=== PATIENT | male | born 1940 | race Caucasian/White ===

== ENCOUNTER → 2017-08-31 | Outpatient (CLI) | payer MEDICARE ==
[~2017-08-31] MED LIST: ACET-66 PO; ATOR10TA69 PO; BACL10TA PO; GABA-529 PO; NABU500T3 PO; SACU1TAB7 PO; VIT1CAPS47 PO
== END | disposition home or self-care (01) ==
LOC: SHCH 14:19
PROVIDERS: ATTEND Internal Medicine Cardiovascular Disease
DX: I08.2 Rheumatic disorders of both aortic and tricuspid valves (principal)
CPT/HCPCS: 93306

== ENCOUNTER 2017-09-05 08:46 | Observation (INO) | payer MEDICARE ==
[2017-09-04 09:30] VITALS: BP 155/68
[2017-09-04 09:41] LABS: APPEARANCE,URINE CLEAR (CLEAR); BASOPHILS % (AUTO) 0.9 % (0.0-5.0); BILIRUBIN,URINE NEGATIVE (NEGATIVE); COLOR,URINE YELLOW (YELLOW); GLUCOSE, URINE (UA) NEGATIVE (NEGATIVE); HEMATOCRIT 50.4 % (42-54); KETONES,URINE NEGATIVE (NEGATIVE); LEUKOCYTE ESTERASE ,URINE NEGATIVE (NEGATIVE); LYMPHOCYTES % (AUTO) 18.3 % (21.0-51.0); MEAN CORPUSCULAR HEMOGLOBIN 28.6 pg (27.0-33.0); MEAN CORPUSCULAR HGB CONC 33.2 g/dL (32.0-36.0); MEAN CORPUSCULAR VOLUME 86.1 fL (79-99); MONOCYTES % (AUTO) 7.4 % (3.0-13.0); NEUTROPHILS % (AUTO) 72.4 % (40.0-77.0); NITRATE,URINE NEGATIVE (NEGATIVE); OCCULT BLOOD,URINE NEGATIVE (NEGATIVE); PLATELET COUNT (AUTO) 194 K/uL (130-400); PROTEIN,URINE NEGATIVE (NEGATIVE); RED BLOOD CELL COUNT(AUTO) 5.86 MIL/uL (4.50-6.20); RED CELL DISTRIBUTION WIDTH 14.4 % (11.0-15.5); UROBILINOGEN,URINE 0.2 mg/dL (0.2-1.0); WHITE BLOOD COUNT (AUTO) 7.9 K/uL (4.8-10.8)
[2017-09-04 09:53] LABS: CREATININE 0.9 mg/dL (0.5-1.5); INR 1.08 (0.85-1.15); PARTIAL THROMBOPLASTIN TIME 26.5 SEC (26.3-35.5); POTASSIUM 4.7 mmol/L (3.5-5.1); PROTHROMBIN TIME 11.3 SEC (9.6-11.6)
[2017-09-05] VITALS (19 sets, daily range): BP systolic 130–197; BP diastolic 40–95
[~2017-09-05] VITALS: Ht 175.3 cm; Wt 87.7 kg
[~2017-09-05 08:46] MED LIST changes: -SACU1TAB7 PO; +SODIUM CHLORIDE 0.9% 500ML 500 ML IV SCH
[2017-09-05] MEDS ORDERED: SODIUM CHLORIDE 0.9% 1000ML 1,000 ML IV ONE (09:02)
[2017-09-05] MEDS ORDERED: ISOVUE-370 50ML VIAL IV ONE (11:08)
[2017-09-05] MEDS ORDERED: IOPAMIDOL-370 100 ML VIAL IV ONE (11:08)
[2017-09-05] MEDS ORDERED: HEPARIN SODIUM 1000UNIT/ML 10ML VIAL ONE (11:08)
[2017-09-05] MEDS ORDERED: NITROGLYCERIN 5 MG/ML 10 ML VIAL IV ONE (11:08)
[2017-09-05] MEDS ORDERED: BIVALIRUDIN 250 MG/VIAL IV ONE (11:08)
[2017-09-05] MEDS ORDERED: LIDOCAINE HCL 1% 20 ML VIAL ONE (11:08)
[2017-09-05] MEDS ORDERED: MIDAZOLAM HCL 1 MG/ML 2ML VIAL ONE (11:46)
[2017-09-05] MEDS ORDERED: MORPHINE SULFATE 4 MG/1ML SYG ONE (11:46)
[2017-09-05] MEDS ORDERED: SODIUM CHLORIDE 0.9% 1000ML 1,000 ML IV SCH (12:15)
[2017-09-05] MEDS: FUROSEMIDE 10 MG/ML 4ML VIAL IVP SCH ×2 (13:06→20:11)
[2017-09-05 15:50] LABS: BASOPHILS % (AUTO) 0.7 % (0.0-5.0); EOSINOPHILS % (AUTO) 1.5 % (0.0-8.0); HEMATOCRIT 48.9 % (42-54); MEAN CORPUSCULAR HEMOGLOBIN 28.9 pg (27.0-33.0); MEAN CORPUSCULAR HGB CONC 33.5 g/dL (32.0-36.0); MEAN CORPUSCULAR VOLUME 86.2 fL (79-99); MONOCYTES % (AUTO) 9.9 % (3.0-13.0); NEUTROPHILS % (AUTO) 50.9 % (40.0-77.0); NUCLEATED RED BLOOD CELLS 0.1 % (0.0-0.19); PLATELET COUNT (AUTO) 230 K/uL (130-400); RED BLOOD CELL COUNT(AUTO) 5.67 MIL/uL (4.50-6.20); RED CELL DISTRIBUTION WIDTH 14.2 % (11.0-15.5); WHITE BLOOD COUNT (AUTO) 11.3 K/uL (4.8-10.8)
[2017-09-05] MEDS ORDERED: ONDANSETRON HCL MDV 20ML 2 MG/ML VIAL ONE (15:52)
[2017-09-05 15:59] LABS: CARBON DIOXIDE 32 mmol/L (21-32); CHLORIDE 105 mmol/L (101-111); CREATININE 0.9 mg/dL (0.5-1.5); GLOMERULAR FILTR. RATE CALC 87 mL/min (>60); GLUCOSE,RANDOM 148 mg/dL (70-105); POTASSIUM 3.9 mmol/L (3.5-5.1); SODIUM SERUM 144 mmol/L (136-145); UREA NITROGEN, BLOOD 14 mg/dL (7-18)
[2017-09-05 16:09] LABS: MAGNESIUM 1.9 mg/dL (1.80-2.40)
[2017-09-05 16:13] LABS: ALANINE AMINOTRANSFERASE 23 U/L (12-78); ALBUMIN 3.7 g/dL (3.5-5.0); ASPARTATE AMINOTRANSFERASE 23 U/L (10-37); BILIRUBIN,TOTAL 2.1 mg/dL (0.2-1.0); CREATINE KINASE MB 2.9 ng/mL (0.5-3.6); CREATINE KINASE, TOTAL 70 U/L (21-232); MYOGLOBIN 58 ng/mL (10-92); TOTAL PROTEIN, SERUM 6.8 g/dL (6.0-8.3); TROPONIN I < 0.04 ng/mL (0.00-0.06)
[2017-09-05 16:20] LABS: PHOSPHORUS 3.3 mg/dL (2.5-4.9)
[2017-09-05] MEDS ORDERED: ONDANSETRON HCL MDV 20ML 2 MG/ML VIAL IVP ONE (17:10)
[2017-09-06] MEDS: FUROSEMIDE 10 MG/ML 4ML VIAL IVP SCH (03:49)
[2017-09-06 04:05] VITALS: BP 148/66
[2017-09-06 07:21] VITALS: BP 135/59
[2017-09-06] MEDS ORDERED: NITROGLYCERIN 0.4 MG SL TAB SL PRN (08:30)
[2017-09-06] MEDS ORDERED: HYDRALAZINE HCL 20 MG/ML VIAL IV PRN (08:30)
[2017-09-06] MEDS ORDERED: ONDANSETRON HCL 4 MG/2 ML VIAL IV PRN (08:30)
[2017-09-06] MEDS ORDERED: ACETAMINOPHEN 325 MG TAB PO PRN ×2 (08:30)
[2017-09-06] MEDS ORDERED: GUAIFENESIN-DM 200/20 MG 10 ML PO PRN (08:30)
[2017-09-06] MEDS ORDERED: MORPHINE SULFATE 2 MG/ML 1ML SYG IV PRN (08:30)
[2017-09-06] MEDS ORDERED: ACETAMINOPHEN-CODEINE 300/30MG TAB PO PRN (08:30)
[2017-09-06] MEDS ORDERED: MAG HYDROX/AL HYDROX/SIMETH ES 30 ML SUSP UDCUP PO PRN (08:30)
[2017-09-06] MEDS ORDERED: LACTULOSE 20 GM/30 ML UDCUP PO PRN (08:30)
[2017-09-06] MEDS ORDERED: ASPIRIN 81MG TAB.CHEW PO SCH (09:00)
[2017-09-06] MEDS ORDERED: BACLOFEN 10 MG TABLET PO SCH (09:00)
[2017-09-06] MEDS ORDERED: NABUMETONE 500 MG PO SCH (09:00)
[2017-09-06] MEDS ORDERED: FAMOTIDINE 20MG TAB 20 MG TAB PO SCH (09:00)
[2017-09-06] MEDS ORDERED: GABAPENTIN 100 MG CAPSULE PO SCH (09:00)
[2017-09-06 11:27] VITALS: BP 139/69
[2017-09-06 11:28] VITALS: BP_SYST 126; BP_SYST 154; BP_DIAS 58; BP_DIAS 61
[2017-09-07] MEDS ORDERED: ATORVASTATIN CALCIUM 10 MG TABLET PO SCH (21:00)
== END 2017-09-06 16:40 | disposition home or self-care (01) ==
LOC: DAH 08:46 → 2DH 08:47 → DAH 08:47
PROVIDERS: ADMIT Internal Medicine; ATTEND Internal Medicine Cardiovascular Disease
DX: I50.42 Chronic combined systolic (congestive) and diastolic (congestive) heart failure (principal); I25.10 Atherosclerotic heart disease of native coronary artery without angina pectoris; I25.2 Old myocardial infarction; E78.5 Hyperlipidemia, unspecified; G89.29 Other chronic pain; M54.9 Dorsalgia, unspecified; Z79.899 Other long term (current) drug therapy
CPT/HCPCS: 36415 ×2; 71045; 71250; 80048; 80053; 81003; 82550; 82553; 82948; 83735; 83874; 84100; 84484; 85025 ×2; 85610; 85730; 92950; 93005 ×2; 93458; 96374; 96376 ×2; A4606; C1760; C1894; G0378 ×32; J1644; J1940 ×3; J2250; J2270; J3490; J7030; Q9967 ×2; J0583

== ENCOUNTER 2017-10-01 11:30 | Inpatient (IN) | payer MEDICARE ==
[~2017-10-01] VITALS: Ht 174 cm; Wt 85.7 kg
[~2017-10-01 11:30] MED LIST changes: -SODIUM CHLORIDE 0.9% 500ML 500 ML IV SCH
[2017-10-01 12:10] VITALS: BP 161/71
[2017-10-01 12:11] LABS: LYMPHOCYTES % (AUTO) 21.3 % (21.0-51.0); RED CELL DISTRIBUTION WIDTH 14.6 % (11.0-15.5)
[2017-10-01 12:19] LABS: CREATININE 0.8 mg/dL (0.5-1.5); POTASSIUM 4.5 mmol/L (3.5-5.1)
[2017-10-01] MEDS ORDERED: SACU1TAB7 PO (12:28)
[2017-10-01 12:33] LABS: BASOPHILS % (AUTO) 0.7 % (0.0-5.0); EOSINOPHILS % (AUTO) 1.3 % (0.0-8.0); HEMATOCRIT 49.4 % (42-54); MEAN CORPUSCULAR HGB CONC 33.3 g/dL (32.0-36.0); MONOCYTES % (AUTO) 8.8 % (3.0-13.0); NEUTROPHILS % (AUTO) 67.9 % (40.0-77.0); NUCLEATED RED BLOOD CELLS 0.1 % (0.0-0.19); PLATELET COUNT (AUTO) 210 K/uL (130-400); RED BLOOD CELL COUNT(AUTO) 5.68 MIL/uL (4.50-6.20); WHITE BLOOD COUNT (AUTO) 7.5 K/uL (4.8-10.8)
[2017-10-03] VITALS (15 sets, daily range): BP systolic 85–160; BP diastolic 37–89
[2017-10-03] MEDS: CEFAZOLIN SODIUM 1 GM VIAL IVP SCH (05:00)
[2017-10-03] MEDS ORDERED: BUPIVACAINE/EPI/PF 0.25% 30ML VIAL IJ ONE (06:29)
[2017-10-03] MEDS ORDERED: DURAMORPH PF1 MG/ML 10ML AMP IV ONE (06:29)
[2017-10-03] MEDS ORDERED: BACITRACIN 50,000 UNIT VIAL ONE (06:30)
[2017-10-03] MEDS ORDERED: THROMBIN-JMI 20000 UNIT KIT TP ONE (06:30)
[2017-10-03] MEDS ORDERED: NEOSTIGMINE 5MG/5ML SYR IV ONE ×2 (07:17→08:08)
[2017-10-03] MEDS ORDERED: GLYCOPYRROLATE 0.2 MG/ML 5 ML VIAL ONE ×2 (07:17→08:08)
[2017-10-03] MEDS ORDERED: DEXAMETHASONE SOD PHOSPHATE 10MG/ML 1ML VIAL ONE ×2 (07:17→08:08)
[2017-10-03] MEDS ORDERED: ONDANSETRON HCL 4 MG/2 ML VIAL ONE ×2 (07:17→08:08)
[2017-10-03] MEDS ORDERED: LIDOCAINE PF 2% 5ML ABBOJECT ONE ×2 (07:17→08:08)
[2017-10-03] MEDS ORDERED: MIDAZOLAM HCL 1 MG/ML 2ML VIAL ONE ×2 (07:18→08:08)
[2017-10-03] MEDS ORDERED: PROPOFOL 10 MG/ML 20ML VIAL IV ONE ×2 (07:18→08:08)
[2017-10-03] MEDS ORDERED: FENTANYL CITRATE PF 50 MCG/1 ML 2ML VIAL ONE ×2 (07:18→08:08)
[2017-10-03] MEDS ORDERED: LACTATED RINGERS 1000ML 1,000 ML IV ONE (07:21)
[2017-10-03] MEDS ORDERED: EPHEDRINE SULFATE 50 MG/ML AMPULE ONE (08:25)
[2017-10-03] MEDS ORDERED: LIDOCAINE HCL 1% 20 ML VIAL ONE (10:35)
[2017-10-03] MEDS ORDERED: ISOVUE-370 50ML VIAL IV ONE (11:13)
[2017-10-03] MEDS ORDERED: SODIUM CHLORIDE 0.9% 500ML 500 ML IV ONE (16:58)
[2017-10-03] MEDS: ***HM***(Vit C/E/Zn/Coppr/Lutein/Zeaxan (Preservision Areds 2 Soft PO SCH (21:00)
[2017-10-03] MEDS: NABUMETONE 500 MG PO SCH (21:00)
[2017-10-03] MEDS: SACUBITRIL PO SCH (21:12)
[2017-10-03] MEDS: VALSARTAN PO SCH (21:12)
[2017-10-03] MEDS: ATORVASTATIN CALCIUM 10 MG TABLET PO SCH (21:13)
[2017-10-03] MEDS: ACETAMINOPHEN EXTRA STRENGTH 500 MG TABLET PO SCH (21:14)
[2017-10-03] MEDS: BACLOFEN 10 MG TABLET PO SCH (21:14)
[2017-10-04] VITALS (25 sets, daily range): BP systolic 99–147; BP diastolic 58–84
[2017-10-04] MEDS: CEFAZOLIN SODIUM 1 GM VIAL IVP SCH ×2 (08:00→10:30)
[2017-10-04] MEDS ORDERED: SODIUM CHLORIDE 0.9% 1000ML 1,000 ML IV ONE (08:01)
[2017-10-04] MEDS: SACUBITRIL PO SCH ×2 (08:02→21:16)
[2017-10-04] MEDS: ***HM***(Vit C/E/Zn/Coppr/Lutein/Zeaxan (Preservision Areds 2 Soft PO SCH ×2 (08:02→21:00)
[2017-10-04] MEDS: GABAPENTIN 100 MG CAPSULE PO SCH (08:02)
[2017-10-04] MEDS: NABUMETONE 500 MG PO SCH ×2 (08:02→21:00)
[2017-10-04] MEDS: BACLOFEN 10 MG TABLET PO SCH ×2 (08:02→21:15)
[2017-10-04] MEDS: VALSARTAN PO SCH ×2 (08:02→21:16)
[2017-10-04] MEDS: ACETAMINOPHEN EXTRA STRENGTH 500 MG TABLET PO SCH ×3 (08:02→21:15)
[2017-10-04] MEDS ORDERED: ESMOLOL HCL 10 MG/ML 10 ML VIAL ONE (08:08)
[2017-10-04] MEDS ORDERED: SODIUM CHLORIDE 0.9% 10 ML VIAL ONE (08:37)
[2017-10-04] MEDS ORDERED: DURAMORPH PF1 MG/ML 10ML AMP IV ONE (09:09)
[2017-10-04] MEDS ORDERED: BACITRACIN 50,000 UNIT VIAL ONE (09:09)
[2017-10-04] MEDS ORDERED: BUPIVACAINE/EPI/PF 0.25% 30ML VIAL IJ ONE (09:09)
[2017-10-04] MEDS ORDERED: FENTANYL CITRATE PF 50 MCG/1 ML 2ML VIAL ONE ×2 (10:36→12:51)
[2017-10-04] MEDS ORDERED: ONDANSETRON HCL 4 MG/2 ML VIAL ONE ×2 (13:29→21:09)
[2017-10-04] MEDS ORDERED: NEOSTIGMINE 5MG/5ML SYR IV ONE (13:29)
[2017-10-04] MEDS ORDERED: METOCLOPRAMIDE 10 MG/2 ML VIAL ONE (13:29)
[2017-10-04] MEDS ORDERED: DEXAMETHASONE SOD PHOSPHATE 10MG/ML 1ML VIAL ONE (13:29)
[2017-10-04] MEDS ORDERED: NALOXONE HCL 0.4 MG/1 ML ML ONE (13:29)
[2017-10-04] MEDS ORDERED: PROMETHAZINE HCL 25 MG/ML 1ML AMPULE IM PRN (13:45)
[2017-10-04] MEDS ORDERED: HYDROCODONE/ACETAMINOPHEN 5/325 MG TAB PO PRN (13:45)
[2017-10-04] MEDS ORDERED: SODIUM CHLORIDE 0.9% 10 ML VIAL IVP PRN (13:45)
[2017-10-04] MEDS ORDERED: MORPHINE SULFATE 2 MG/ML 1ML SYG IVP PRN (13:45)
[2017-10-04] MEDS ORDERED: CEFAZOLIN 2GM / 50 ML 50 ML IV SCH (13:45)
[2017-10-04] MEDS: LACTATED RINGERS 1000ML 1,000 ML IV SCH (15:20)
[2017-10-04] MEDS: DEXAMETHASONE SOD PHOSPHATE 4 MG/ML 1ML VIAL IVP SCH ×2 (15:35→19:40)
[2017-10-04] MEDS ORDERED: CEFAZOLIN SODIUM 1 GM VIAL IVP ONE (18:00)
[2017-10-04] MEDS ORDERED: ONDANSETRON HCL MDV 20ML 2 MG/ML VIAL IVP PRN (21:15)
[2017-10-04] MEDS: ATORVASTATIN CALCIUM 10 MG TABLET PO SCH (21:15)
[2017-10-05] VITALS (18 sets, daily range): BP systolic 109–148; BP diastolic 41–66
[2017-10-05] MEDS: DEXAMETHASONE SOD PHOSPHATE 4 MG/ML 1ML VIAL IVP SCH ×3 (02:00→13:42)
[2017-10-05] MEDS: LACTATED RINGERS 1000ML 1,000 ML IV SCH (04:11)
[2017-10-05] MEDS: CEFAZOLIN SODIUM 1 GM VIAL IVP SCH (04:11)
[2017-10-05] MEDS: BACLOFEN 10 MG TABLET PO SCH (08:37)
[2017-10-05] MEDS: GABAPENTIN 100 MG CAPSULE PO SCH (08:37)
[2017-10-05] MEDS: ACETAMINOPHEN EXTRA STRENGTH 500 MG TABLET PO SCH ×2 (08:38→13:43)
[2017-10-05] MEDS: SACUBITRIL PO SCH (08:42)
[2017-10-05] MEDS: VALSARTAN PO SCH (08:42)
[2017-10-05] MEDS: NABUMETONE 500 MG PO SCH (08:42)
[2017-10-05] MEDS: ***HM***(Vit C/E/Zn/Coppr/Lutein/Zeaxan (Preservision Areds 2 Soft PO SCH (08:46)
== END 2017-10-05 17:56 | disposition home or self-care (01) | DRG 519 ==
LOC: EDSTATUS 11:30 → DAHIP 10-03 05:50 → 2BH 10-03 12:06 → 2CH 10-03 16:50
PROVIDERS: ADMIT Neurological Surgery; ATTEND Neurological Surgery
PROC: 00NY0ZZ Release Lumbar Spinal Cord, Open Approach (ICD-10-PCS; principal; 2017-10-04 09:38)
PROC: 4A11X4G Monitoring of Peripheral Nervous Electrical Activity, Intraoperative, External Approach (ICD-10-PCS; 2017-10-04 09:38)
PROC: 01NB0ZZ Release Lumbar Nerve, Open Approach (ICD-10-PCS; 2017-10-04 09:38)
PROC: 5A1223Z Performance of Cardiac Pacing, Continuous (ICD-10-PCS; 2017-10-04 09:38)
DX: M48.061 Spinal stenosis, lumbar region without neurogenic claudication (principal); I42.9 Cardiomyopathy, unspecified; M48.02 Spinal stenosis, cervical region
CPT/HCPCS: 33210; 36415; 71045; 72020; 80048; 85025; A4218; A4344; C1894; J0690; J1100; J1644; J2001; J2250; J2274; J2310; J2405; J2704; J2710; J2765; J3010; J3490; J7030; J7040; J7120; Q9967

== ENCOUNTER 2017-10-07 15:56 | Emergency (ER) | payer MEDICARE ==
[~2017-10-07 15:56] MED LIST changes: +SACU1TAB7 PO
[2017-10-07 16:39] LABS: BASOPHILS % (AUTO) 0.8 % (0.0-5.0); EOSINOPHILS % (AUTO) 0.3 % (0.0-8.0); HEMATOCRIT 42.2 % (42-54); LYMPHOCYTES % (AUTO) 10.1 % (21.0-51.0); MEAN CORPUSCULAR HEMOGLOBIN 28.7 pg (27.0-33.0); MEAN CORPUSCULAR HGB CONC 33.5 g/dL (32.0-36.0); MEAN CORPUSCULAR VOLUME 85.5 fL (79-99); MONOCYTES % (AUTO) 9.6 % (3.0-13.0); NEUTROPHILS % (AUTO) 79.2 % (40.0-77.0); NUCLEATED RED BLOOD CELLS 0.1 % (0.0-0.19); PLATELET COUNT (AUTO) 155 K/uL (130-400); RED BLOOD CELL COUNT(AUTO) 4.93 MIL/uL (4.50-6.20); WHITE BLOOD COUNT (AUTO) 12.6 K/uL (4.8-10.8)
[2017-10-07 16:47] LABS: CREATININE 0.7 mg/dL (0.5-1.5)
[2017-10-07 16:52] LABS: ALBUMIN 2.9 g/dL (3.5-5.0); BILIRUBIN,TOTAL 1.9 mg/dL (0.2-1.0); TOTAL PROTEIN, SERUM 6.6 g/dL (6.0-8.3)
[2017-10-07] MEDS ORDERED: BISACODYL 10 MG SUPP.RECT RC ONE (17:09)
[2017-10-07 17:44] LABS: APPEARANCE,URINE Clear (CLEAR); BILIRUBIN,URINE Negative (NEGATIVE); COLOR,URINE Yellow (YELLOW); GLUCOSE, URINE (UA) Negative (NEGATIVE); KETONES,URINE >=80 mg/dL (NEGATIVE); LEUKOCYTE ESTERASE ,URINE Negative (NEGATIVE); NITRATE,URINE Negative (NEGATIVE); OCCULT BLOOD,URINE Nonhemolyzed Trace (NEGATIVE); PROTEIN,URINE POS 1+ (NEGATIVE)
[2017-10-07 17:53] LABS: BACTERIA,URINE Rare /HPF (None Seen); WBC,URINE 0-1 /HPF (0-1)
[2017-10-07 17:54] LABS: SQUAMOUS EPITHELIAL CELL,UR Rare /HPF (0-2)
[2017-10-07] MEDS ORDERED: LACTULOSE 20 GM/30 ML UDCUP ONE (19:04)
== END 2017-10-07 19:50 | disposition home or self-care (01) ==
LOC: EDH 15:56
DX: K59.00 Constipation, unspecified (principal); R00.1 Bradycardia, unspecified; Z98.890 Other specified postprocedural states; E78.5 Hyperlipidemia, unspecified; Z79.899 Other long term (current) drug therapy
CPT/HCPCS: 36415; 71045; 74021; 80053; 81001; 85025; 93005

== ENCOUNTER → 2018-07-30 | Outpatient (CLI) | payer MEDICARE ==
[~2018-07-30] MED LIST changes: -ACET-66 PO; -BACL10TA PO; -GABA-529 PO; -NABU500T3 PO
== END | disposition home or self-care (01) ==
LOC: LAB 10:40
PROVIDERS: ATTEND Neurological Surgery
DX: M54.16 Radiculopathy, lumbar region (principal)
CPT/HCPCS: 36415; 82565; 84520

== ENCOUNTER → 2018-08-06 | Outpatient (CLI) | payer MEDICARE ==
[~2018-08-06] MED LIST changes: +GADODIAMIDE 10 MMOL/20 ML ML IV ONE
== END | disposition home or self-care (01) ==
LOC: RAH 06:42
PROVIDERS: ATTEND Neurological Surgery
DX: M47.26 Other spondylosis with radiculopathy, lumbar region (principal); M48.061 Spinal stenosis, lumbar region without neurogenic claudication
CPT/HCPCS: 72158; A9579

== ENCOUNTER 2018-08-26 09:43 | Observation (INO) | payer MEDICARE ==
[~2018-08-26] VITALS: Ht 175.3 cm; Wt 80.7 kg
[~2018-08-26 09:43] MED LIST changes: -GADODIAMIDE 10 MMOL/20 ML ML IV ONE
[2018-08-26] MEDS ORDERED: ONDANSETRON HCL 4 MG/2 ML VIAL ONE ×3 (10:17→21:50)
[2018-08-26 10:40] LABS: APPEARANCE,URINE Clear (CLEAR); BILIRUBIN,URINE Negative (NEGATIVE); COLOR,URINE Dark Yellow (YELLOW); GLUCOSE, URINE (UA) Negative (NEGATIVE); KETONES,URINE Negative (NEGATIVE); LEUKOCYTE ESTERASE ,URINE Negative (NEGATIVE); NITRATE,URINE Negative (NEGATIVE); OCCULT BLOOD,URINE Negative (NEGATIVE); PROTEIN,URINE Trace (NEGATIVE)
[2018-08-26 10:57] LABS: BACTERIA,URINE Rare /HPF (None Seen); SQUAMOUS EPITHELIAL CELL,UR Rare /HPF (0-2); WBC,URINE 0-1 /HPF (0-1)
[2018-08-26 11:07] LABS: BASOPHILS % (AUTO) 0.2 % (0.0-5.0); EOSINOPHILS % (AUTO) 0.2 % (0.0-8.0); HEMATOCRIT 55.2 % (42-54); LYMPHOCYTES % (AUTO) 15.8 % (21.0-51.0); MEAN CORPUSCULAR HEMOGLOBIN 28.3 pg (27.0-33.0); MEAN CORPUSCULAR HGB CONC 33.2 g/dL (32.0-36.0); MEAN CORPUSCULAR VOLUME 85.2 fL (79-99); MONOCYTES % (AUTO) 16.2 % (3.0-13.0); NEUTROPHILS % (AUTO) 67.6 % (40.0-77.0); NUCLEATED RED BLOOD CELLS 0.2 % (0.0-0.19); PLATELET COUNT (AUTO) 164 K/uL (130-400); RED BLOOD CELL COUNT(AUTO) 6.48 MIL/uL (4.50-6.20); RED CELL DISTRIBUTION WIDTH 14.3 % (11.0-15.5); WHITE BLOOD COUNT (AUTO) 7.5 K/uL (4.8-10.8)
[2018-08-26 11:09] LABS: CREATININE 1.2 mg/dL (0.5-1.5)
[2018-08-26 11:13] LABS: ALBUMIN 3.6 g/dL (3.5-5.0); BILIRUBIN,TOTAL 1.4 mg/dL (0.2-1.0)
[2018-08-26] MEDS ORDERED: HYDRALAZINE HCL 20 MG/ML VIAL IV PRN (14:00)
[2018-08-26] MEDS ORDERED: ONDANSETRON HCL 4 MG/2 ML VIAL IV PRN (14:00)
[2018-08-26] MEDS ORDERED: METOCLOPRAMIDE 10 MG/2 ML VIAL ONE (15:20)
[2018-08-26] MEDS ORDERED: HEPARIN SODIUM 5000UNIT/ML 1ML VIAL ONE (15:21)
[2018-08-26] MEDS ORDERED: PHARMACY COMMUNICATION MISC SCH (15:30)
[2018-08-26 16:19] LABS: ALBUMIN 3.4 g/dL (3.5-5.0); BILIRUBIN,TOTAL 1.4 mg/dL (0.2-1.0); PHOSPHORUS 3.7 mg/dL (2.5-4.9); TOTAL PROTEIN, SERUM 6.7 g/dL (6.0-8.3)
[2018-08-26] MEDS: FAMOTIDINE/PF 20 MG/2 ML VIAL IV SCH (21:00)
[2018-08-26] MEDS: METOCLOPRAMIDE 10 MG/2 ML VIAL IVP SCH (21:00)
[2018-08-26] MEDS: SODIUM CHLORIDE 0.9% 1000ML 1,000 ML IV SCH (21:57)
[2018-08-26] MEDS ORDERED: HEPARIN SODIUM 5000UNIT/ML 1ML VIAL SQ SCH (22:00)
[2018-08-26] MEDS ORDERED: FAMOTIDINE/PF 20 MG/2 ML VIAL IV ONE (22:21)
[2018-08-27 00:23] VITALS: BP 117/56
[2018-08-27] MEDS ORDERED: LEVOFLOXACIN 500 MG/D5W 100 ML 100 ML ONE (00:54)
[2018-08-27 02:23] VITALS: BP 117/56
[2018-08-27] MEDS ORDERED: ENTRESTO PO (02:51)
[2018-08-27] MEDS ORDERED: PHARMACY COMMUNICATION MISC SCH (03:30)
[2018-08-27] MEDS: METOCLOPRAMIDE 10 MG/2 ML VIAL IVP SCH ×3 (07:04→17:02)
[2018-08-27] MEDS: SODIUM CHLORIDE 0.9% 1000ML 1,000 ML IV SCH (07:06)
[2018-08-27] MEDS ORDERED: ENOXAPARIN SODIUM 40 MG/0.4 ML SYRINGE SQ SCH (09:00)
[2018-08-27] MEDS: FAMOTIDINE/PF 20 MG/2 ML VIAL IV SCH (09:23)
[2018-08-27] MEDS ORDERED: CIPR250S5 PO (10:30)
[2018-08-27 12:00] VITALS: BP 119/61
[2018-08-27 16:00] VITALS: BP 133/58
--- NOTE | 2018-08-27 16:00 | NUR ---
GISELLE OLMOS MET W PT AND SPOUSE, SEAN, WHO WILL PROVIDE TRANSPORT HOME. PT IS AAOX3, ENG SPKG, INDP OF ADLS, NO DME HX OF DIARRHE[place] X5 DAYS, ASKING WHY NO STOOL SAMPLES TAKEN, CONFERRED WITH PRIMARY RN, WHO STATES PT WANTED TO GO OME, STATEES WAS FEELING BETTER, CLINICALLY IMPROVING SO NO STOOL STUDIES WERE SENT. EXPLAINED TO PATIENT, VERB UNDERSTANDING Addendum: 08/27/18 at 1704 by JAVI VILLANUEVA RN CM Amended: Links added.
[2018-08-27] MEDS ORDERED: LEVO500T2 PO (16:35)
--- NOTE | 2018-08-27 17:29 | NUR ---
INSTRUCTIONS DISCHARGE INSTRUCTIONS GIVEN TO PATIENT AND SPOUSE USING TEACH BACK. NEW PRESCRIPTION CALLED IN TO PREFERRED PHARMACY PER PATIENT REQUEST. ALL PRINTED INFORMATION AND MD INSTRUCTIONS PLACE IN PACKET. IV REMOVED WITH TIP INTACT. DIRECT PRESSURE APPLIED UNTIL BLEEDING CONTROLLED THEN SITE COVERED WITH GAUZE AND SECURED WITH TAPE.
[2018-08-28] MEDS ORDERED: LEVOFLOXACIN 500 MG/D5W 100 ML 100 ML IV SCH
== END 2018-08-27 17:45 | disposition home or self-care (01) ==
LOC: EDH 09:43 → EDHIP 13:57 → 3AH 08-27 01:32
PROVIDERS: ADMIT Internal Medicine; ATTEND Internal Medicine
DX: K52.9 Noninfective gastroenteritis and colitis, unspecified (principal); E87.1 Hypo-osmolality and hyponatremia; E78.5 Hyperlipidemia, unspecified; E86.1 Hypovolemia; E87.8 Other disorders of electrolyte and fluid balance, not elsewhere classified; I50.42 Chronic combined systolic (congestive) and diastolic (congestive) heart failure; J98.4 Other disorders of lung; N17.9 Acute kidney failure, unspecified; Z82.49 Family history of ischemic heart disease and other diseases of the circulatory system; Z80.9 Family history of malignant neoplasm, unspecified; Z82.3 Family history of stroke
CPT/HCPCS: 36415; 74176; 80053 ×2; 81001; 83605; 83690; 83735; 83880; 84100; 84484; 85025; 87804 ×2; 93005; 96361; 96372; 96374; 96375; 96376; 99284; G0378 ×28; J1644; J1650; J1956; J2405 ×3; J2765 ×4; J3490 ×2

== ENCOUNTER 2022-07-24 07:16 | Day surgery (SDC) | payer MEDICARE ==
[2022-07-14 14:52] LABS: BASOPHILS % (AUTO) 0.5 % (0.0-5.0); EOSINOPHILS % (AUTO) 0.8 % (0.0-8.0); HEMATOCRIT 48.7 % (42-54); LYMPHOCYTES % (AUTO) 14.7 % (21.0-51.0); MEAN CORPUSCULAR HEMOGLOBIN 28.8 pg (27.0-33.0); MEAN CORPUSCULAR HGB CONC 31.6 g/dL (32.0-36.0); MEAN CORPUSCULAR VOLUME 91.2 fL (79-99); MONOCYTES % (AUTO) 8.7 % (3.0-13.0); NEUTROPHILS % (AUTO) 74.8 % (40.0-77.0); PLATELET COUNT (AUTO) 192 K/uL (130-400); RED BLOOD CELL COUNT(AUTO) 5.34 MIL/uL (4.50-6.20); RED CELL DISTRIBUTION WIDTH 14.7 % (11.0-15.5); WHITE BLOOD COUNT (AUTO) 11.1 K/uL (4.8-10.8)
[2022-07-14 14:53] VITALS: BP 129/60
[2022-07-14 15:00] LABS: CREATININE 0.9 mg/dL (0.5-1.5); POTASSIUM 4.2 mmol/L (3.5-5.1)
[2022-07-14 15:01] LABS: APPEARANCE,URINE CLEAR (CLEAR); BILIRUBIN,URINE NEGATIVE (NEGATIVE); COLOR,URINE LIGHT-YELLOW (YELLOW); GLUCOSE, URINE (UA) NEGATIVE (NEGATIVE); KETONES,URINE NEGATIVE (NEGATIVE); LEUKOCYTE ESTERASE ,URINE NEGATIVE Leu/uL (NEGATIVE); NITRATE,URINE NEGATIVE (NEGATIVE); OCCULT BLOOD,URINE NEGATIVE (NEGATIVE); PH,URINE 5.5 (5.0-8.0); PROTEIN,URINE NEGATIVE (NEGATIVE); UROBILINOGEN,URINE 0.2 mg/dL (0.2-1.0)
[2022-07-14 15:03] LABS: INR 1.1 (0.85-1.15); PROTHROMBIN TIME 11.9 SEC (9.6-11.6)
[2022-07-14 15:04] LABS: PARTIAL THROMBOPLASTIN TIME 26.6 SEC (26.3-35.5)
[2022-07-14 15:06] LABS: MUCUS,URINE RARE LPF (None Seen); WBC,URINE 0-1 /HPF (0-1)
[2022-07-21 15:12] LABS: APPEARANCE,URINE CLEAR (CLEAR); BILIRUBIN,URINE NEGATIVE (NEGATIVE); COLOR,URINE LIGHT-YELLOW (YELLOW); GLUCOSE, URINE (UA) NEGATIVE (NEGATIVE); KETONES,URINE NEGATIVE (NEGATIVE); LEUKOCYTE ESTERASE ,URINE NEGATIVE Leu/uL (NEGATIVE); NITRATE,URINE NEGATIVE (NEGATIVE); OCCULT BLOOD,URINE NEGATIVE (NEGATIVE); PH,URINE 5.5 (5.0-8.0); PROTEIN,URINE NEGATIVE (NEGATIVE); UROBILINOGEN,URINE 0.2 mg/dL (0.2-1.0)
[2022-07-21 15:12] LABS: BASOPHILS % (AUTO) 0.7 % (0.0-5.0); EOSINOPHILS % (AUTO) 1.2 % (0.0-8.0); HEMATOCRIT 48.4 % (42-54); LYMPHOCYTES % (AUTO) 20.2 % (21.0-51.0); MEAN CORPUSCULAR HEMOGLOBIN 28.7 pg (27.0-33.0); MEAN CORPUSCULAR VOLUME 89.6 fL (79-99); MONOCYTES % (AUTO) 9.9 % (3.0-13.0); NEUTROPHILS % (AUTO) 67.5 % (40.0-77.0); PLATELET COUNT (AUTO) 210 K/uL (130-400); RED CELL DISTRIBUTION WIDTH 14.2 % (11.0-15.5); WHITE BLOOD COUNT (AUTO) 8.6 K/uL (4.8-10.8)
[2022-07-21 15:19] LABS: POTASSIUM 4.5 mmol/L (3.5-5.1)
[2022-07-21 15:22] LABS: INR 1.11 (0.85-1.15)
[2022-07-24] VITALS (10 sets, daily range): BP systolic 118–145; BP diastolic 49–70
[~2022-07-24] VITALS: Ht 170.2 cm; Wt 80.7 kg
[~2022-07-24 07:16] MED LIST changes: +0.9% NACL 500ML IV.SOLN 500 ML IV SCH; +ACET-66 PO; +CARV12.511 PO; +DiphenhydrAMINE HCL 50 MG/ML VIAL IVP SCH; +LISI10TA24 PO; -SACU1TAB7 PO
[2022-07-24] MEDS ORDERED: 0.9%NACL 1000ML 1,000 ML IV ONE (07:41)
[2022-07-24] MEDS ORDERED: DiphenhydrAMINE HCL 50 MG/ML VIAL ONE (07:50)
[2022-07-24] MEDS ORDERED: HEPARIN 10,000 UNIT/10ML (1,000 UNIT/ML) VIAL ONE (08:26)
[2022-07-24] MEDS ORDERED: NITROGLYCERIN 50MG VIAL ONE (08:26)
[2022-07-24] MEDS ORDERED: IOHEXOL 350 MG/ML 100ML INFUS..BTL IV ONE (08:26)
[2022-07-24] MEDS ORDERED: LIDOCAINE HCL 400MG/20ML VIAL ONE (08:26)
[2022-07-24] MEDS ORDERED: HEPARIN 1,000 UNIT VIAL ONE (08:26)
[2022-07-24] MEDS ORDERED: MIDAZOLAM HCL 1 MG/ML 2ML VIAL ONE (08:26)
[2022-07-24] MEDS ORDERED: ISOVUE-370 50ML VIAL IV ONE (08:26)
[2022-07-24] MEDS ORDERED: FENTANYL CITRATE PF 50 MCG/1 ML 2ML VIAL ONE (08:26)
[2022-07-24] MEDS ORDERED: 0.9%NACL 1000ML 1,000 ML IV SCH (10:00)
[2022-07-24] MEDS ORDERED: ACETAMINOPHEN 500 MG TABLET ONE (10:46)
== END 2022-07-24 14:10 ==
LOC: DAH 07:16 → EDSTATUS 14:00 → DAH 14:10
PROVIDERS: ATTEND Internal Medicine Cardiovascular Disease
DX: I25.10 Atherosclerotic heart disease of native coronary artery without angina pectoris (principal); I42.0 Dilated cardiomyopathy; E78.00 Pure hypercholesterolemia, unspecified; Z87.891 Personal history of nicotine dependence; Z72.89 Other problems related to lifestyle; Z79.899 Other long term (current) drug therapy; Z98.890 Other specified postprocedural states
CPT/HCPCS: 80048 ×2; 85025 ×2; 85610 ×2; 85730 ×2; 81001; 36415 ×2; 93005; 87088; 81003; 93458; 96360; 96361; A4223 ×3; C1894 ×2; C1760; Q9965; J1200; Q9967 ×2; J3010; J3490 ×2; J7030; J2250; J1644 ×2; A4215; A4222; A4221; A4663; A4216; A4606; 99156; 99157

== ENCOUNTER → 2024-09-09 | Outpatient (CLI) | payer MEDICARE ==
[~2024-09-09] MED LIST changes: -0.9% NACL 500ML IV.SOLN 500 ML IV SCH; -DiphenhydrAMINE HCL 50 MG/ML VIAL IVP SCH
== END | disposition home or self-care (01) ==
LOC: RAH 12:31
PROVIDERS: ATTEND Internal Medicine Cardiovascular Disease
DX: I42.9 Cardiomyopathy, unspecified (principal)
CPT/HCPCS: 93306